=== PATIENT | female | born 1985 | race Caucasian/White ===

== ENCOUNTER 2017-09-13 11:00 | Emergency (ER) | payer OTHER ==
[2017-09-13 11:10] VITALS: RESP 16; TEMP 98.2
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
[2017-09-13 12:32] VITALS: BP 107/74; PULSE 71; O2SAT 96
== END 2017-09-13 12:32 | disposition home or self-care (01) ==
LOC: CED 11:00
DX: S63.91XA Sprain of unspecified part of right wrist and hand, initial encounter (principal); F17.200 Nicotine dependence, unspecified, uncomplicated; X58.XXXA Exposure to other specified factors, initial encounter; Y92.239 Unspecified place in hospital as the place of occurrence of the external cause; Y99.0 Civilian activity done for income or pay; Y93.89 Activity, other specified
CPT/HCPCS: 73130-PO

== ENCOUNTER → 2017-10-17 | Outpatient (CLI) | payer OTHER | LOC: CIMAGING 14:42 | PROVIDERS: ATTEND Physical Medicine & Rehabilitation | DX: M79.641 Pain in right hand (principal); M79.644 Pain in right finger(s) | CPT/HCPCS: 73130-PO ==